=== PATIENT | female | born 2000 | race Caucasian/White ===

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

== ENCOUNTER 2019-01-01 21:31 | Outpatient (CLI) | payer MEDICAID ==
[2017-09-10 08:59] VITALS: BMI 18.4
[~2019-01-01 21:31] MED LIST: HYDROCODON-ACE1 EAC7 PO
[2019-01-01 22:56] LABS: APPEARANCE CLEAR (CLEAR); BILIRUBIN NEGATIVE (NEGATIVE); COLOR YELLOW (YELLOW); GLUCOSE NEGATIVE (NEGATIVE); KETONE NEGATIVE (NEGATIVE); NITRITE NEGATIVE (NEGATIVE); PROTEIN NEGATIVE (NEGATIVE); UROBILINOGEN NORMAL (NORMAL)
[2019-01-01 23:02] LABS: UDS - AMPHET NEGATIVE QUAL (NEGATIVE); UDS - BARB NEGATIVE QUAL (NEGATIVE); UDS - BENZO NEGATIVE QUAL (NEGATIVE); UDS - COCAINE NEGATIVE QUAL (NEGATIVE); UDS - OPIATE NEGATIVE QUAL (NEGATIVE); UDS - PCP NEGATIVE QUAL (NEGATIVE); UDS - THC NEGATIVE QUAL (NEGATIVE)
== END 2019-01-01 23:56 | disposition home or self-care (01) ==
LOC: D.LDO 21:31 → D.LD 22:53 → D.LDO 23:56
PROVIDERS: ATTEND Obstetrics & Gynecology
DX: O26.899 Other specified pregnancy related conditions, unspecified trimester (principal); Z3A.00 Weeks of gestation of pregnancy not specified; R10.9 Unspecified abdominal pain

== ENCOUNTER 2019-03-10 10:59 | Inpatient (IN) | payer MEDICAID ==
[~2019-03-10] VITALS: Ht 162.6 cm; Wt 64.0 kg
[2019-03-10] MEDS ORDERED: PRENAVITE1 TAB PO (11:42)
[2019-03-10 11:43] VITALS: BP 123/79; Ht 162.6 cm; Wt 64.0 kg
[2019-03-10] MEDS ORDERED: CETIRIZINE HCL5 MG PO (11:43)
[2019-03-10 12:43] LABS: HEMATOCRIT 31.6 % (36.0-48.0); HEMOGLOBIN 10.4 g/dL (12-16); MCH 27.6 pg (26.0-34.0); MCHC 32.9 g/dL (31.0-37.0); MCV 83.8 fL (80.0-100.0); MEAN PLATELET VOLUME 11.9 fL (7.4-10.4); RBC 3.77 10x6/uL (4.00-5.40); RDW 13.1 % (11.5-14.5); WBC 13.3 10x3/uL (4.8-10.8)
[2019-03-10 14:56] LABS: APPEARANCE CLEAR (CLEAR); BILIRUBIN NEGATIVE (NEGATIVE); COLOR STRAW (YELLOW); GLUCOSE NEGATIVE (NEGATIVE); KETONE NEGATIVE (NEGATIVE); NITRITE NEGATIVE (NEGATIVE); PROTEIN 1+ mg/dL (NEGATIVE); SPECIFIC GRAVITY 1.005 (1.005-1.020); UROBILINOGEN NORMAL (NORMAL)
[2019-03-10 14:59] LABS: UDS - AMPHET NEGATIVE QUAL (NEGATIVE); UDS - BARB NEGATIVE QUAL (NEGATIVE); UDS - BENZO NEGATIVE QUAL (NEGATIVE); UDS - COCAINE NEGATIVE QUAL (NEGATIVE); UDS - OPIATE NEGATIVE QUAL (NEGATIVE); UDS - PCP NEGATIVE QUAL (NEGATIVE); UDS - THC NEGATIVE QUAL (NEGATIVE)
[2019-03-10 15:00] LABS: RED CELLS - URINE RARE /hpf (0-5); WHITE CELLS - URINE OCC /hpf (0-5)
[2019-03-10 15:02] LABS: BACTERIA FEW /hpf (NONE SEEN)
--- NOTE | 2019-03-11 04:15 | NUR ---
DR PATTERSON AT NURSES STATION REVIEWING STRIP, NEW ORDERS NOTED TO HOLD PITOCIN AND GIVE CYTOTEC 50MCG PO Q4HRS
[2019-03-11 08:11] LABS: RAPID PLASMA REAGIN Non Reactive (Non Reactive)
--- NOTE | 2019-03-12 14:05 | NUR ---
THIS RN TO ROOM FOR PT CHECK. NOTED TO BE ASLEEP AT BREAST. PT C/O "GUSH OF BLOOD" FROM VAGINA. INFANT REMOVED FROM BREAST AND HANDED OFF TO FAMILY MEMBER. FF, LEFT DEVIATION, U/2. SMALL RUBRA LOCHIA NOTED TO PERIPAD, NO CLOTS EXPELLED WITH MASSAGE. PT STATES SHE FEELS STRONG URGE TO VOID AND WANTS TO GO NOW. PT HAS FULL ROM OF LE AND ABLE TO BEAR WEIGHT IN BED. PT POSITIONS SELF TO SITTING. EPIDURAL CATH REMOVED WITHOUT INCIDENT, BLACK TIP INTACT. NO BLEEDING, BRUISING, OR DRAINAGE NOTED TO SITE. BANDAID APPLIED. PT STANDS AT BEDSIDE, DENIES DIZZINESS, THEN AMBULATES TO WITH STEADY GAIT. PT VOIDS LARGE AMOUNT CLEAR YELLOW URINE, UNMEASURED. PT INSTRUCTED ON PERICARE WITH BETADINE RINSE, RETURN DEMONSTRATES PROCEDURE. PT PROVIDED WITH DERMAPLAST SPRAY FOR PERINEUM PER VERBAL ORDER AT DELIVERY FROM DR PARTIDA. PT USES SPRAY, PLACED IN CLEAN PANTIES WITH PADS, AND NEW GOWN. PT AMBULATES TO BEDSIDE AND SITS ON EDGE OF BED. WILL SET UP ROOM AND TRANSFER PT.
--- NOTE | 2019-03-12 14:30 | NUR ---
PT TRANSFERRED TO ROOM 1257 VIA W/C. ORIENTED TO NEW ROOM, BATHROOM, CALL LIGHT, AND TV CONTROLS. PT LUNCH TRAY TRANSFERRED TO NEW ROOM, AND PROVIDED WITH NEW ICE WATER. IV PITOCIN INFUSING ORDERED. PT DENIES NEEDS AT THIS TIME. SRUx2, CL IN REACH. SIG OTHER AT BEDSIDE. INFANT IN NURSERY AT THIS TIME.
[2019-03-12 15:30] VITALS: BP 142/92
--- NOTE | 2019-03-12 15:30 | NUR ---
GENTAMICIN INITIATED ORDERED, SEE EMAR FOR DOC. VS OBTAINED, SEE FLOWSHEET FOR DOC. FF, ML, U/2. SMALL RUBRA LOCHIA NOTED TO PERIPAD, NO CLOTS. PT STATES SHE NEEDS TO GET UP TO BR TO VOID.
--- NOTE | 2019-03-12 15:45 | NUR ---
PT UP TO BR TO VOID WITHOUT ASSIST, VOIDS LARGE AMOUNT CLEAR YELLOW URINE. PERICARE PER PT AND PAD CHANGED. PT BACK TO BED WITH STEADY GAIT, DENIES ANY NEEDS AT THIS TIME. PITOCIN INFUSION COMPLETE AND TURNED OFF. SRUx2, CL IN REACH. WILL CONT TO MONITOR.
--- NOTE | 2019-03-12 17:24 | NUR ---
GENTAMICIN COMPLETED AND LINE FLUSHED WITH PRIMARY LINE OF LR. CLEOCIN DOSE HUNG. PT RATES PAIN 5/10, STATES "IT'S NOT THAT BAD, I DON'T NEED ANYTHING FOR PAIN YET." PT INSTRUCTED ON NEXT TIME MOTRIN AVAILABLE IF NEEDED, UNDERSTANDING VERBALIZED. PT STATES SHE GOT UP TO BR ONCE AND LOCHIA WAS NOT HEAVY. PT REQUESTING TO GET UP TO SHOWER AFTER THIS DOSE ANTIBIOTIC, POC DISCUSSED WILL GET UP TO SHOWER AFTER MEDS. PT ASSISTED WITH POSITIONING INFANT TO BREASTFEED. PT DENIES FURTHER NEEDS. SRUx2, CL IN REACH. SIG OTHER AT BEDSIDE. WILL CONT TO MONITOR.
--- NOTE | 2019-03-12 18:48 | NUR ---
THIS RN TO ROOM FOR PT CHECK. POC DISCUSSED, PT DENIES NEEDING ANYTHING FOR PAIN AT THIS TIME. SRUx2, CL IN REACH.
[2019-03-12 19:17] VITALS: BP 153/110
--- NOTE | 2019-03-12 19:17 | NUR ---
BEDSIDE REPORT REC'D FROM Yue SANTOS RN. PT REC'D IN HIGH FOWLERS POSITION CONVERSING AND LAUGHING WITH VISITORS. AMP HUNG PER ORDERS TO INFUSE VIA PUMP OVER 1 HOUR. SHIFT ASSESSMENT COMPLETED PER FLOWSHEET. B/P INITIALLY 163/118, VISITORS ASK TO STEP OUT, RECHECK DONE FOLLOWING VISITORS OUT OF ROOM, 153/110. PAIN 4-5/10, PERINEAL SORENESS AND ABD CRAMPING, DENIES NEED FOR PAIN MEDS. DISCUSSED WITH PT THAT PAIN CAN OFTEN INCREASE B/P, VERBALIZES UNDERSTANDING. DENIES EPIGASTIC PAIN, VISION DISTURBANCE, NV. 2+ BLE AND BILATERAL LABIAL EDEMA NOTED WITH 1+ BUE EDEMA, NO FACIAL EDEMA NOTED. B/P READINGS REPORTED TO DR. PARTIDA WITH ORDERS REC'D TO ENCOURAGE PT TO TAKE AT LEAST MOTRIN AND RECHECK IN 30-60 MINUTES. POC DISCUSSED WITH PT AND S/O, BOTH VERBALIZE UNDERSTANDING AND DENY QUESTIONS. FUNDUS FIRM, MIDLINE AND U2 WITH SMALL AMT RUBRA LOCHIA, NO CLOTS NOTED. BED IN LOW POSITION WITH UPPER SIDE RAILS RAISED X2. CALL LIGHT AND PHONE WITHIN REACH.
--- NOTE | 2019-03-12 19:46 | NUR ---
DISCUSSED TAKING MOTRIN FOR PAIN, AND PLANS TO CONTINUE TO MONITOR B/P, PT AGREEABLE. PAIN /10. ICE WATER PROVIDED, DENIES ADDITIONAL NEEDS. INFANT IN ROOM IN OPEN CRIB. DR. CORNELL ALSO TO BEDSIDE DISCUSSING CARE WITH PT. BED IN LOW POSITION WITH UPPER SIDE RAILS RAISED X2.
[2019-03-12 20:27] VITALS: BP 139/95
--- NOTE | 2019-03-12 20:27 | NUR ---
PAIN NOW 08/08. B/P RECHECK 139/95. UP IN CHAIR ATTEMPTING TO BF INFANT. DENIES NEEDS. WILL CONTINUE TO MONITOR.
--- NOTE | 2019-03-12 21:36 | NUR ---
DR. PARTIDA CALLS UNIT. REPORT ON LAST B/P OF 139/95. NO NEW ORDERS, CONTINUE TO MONITOR.
--- NOTE | 2019-03-12 21:39 | NUR ---
INFANT IN VISITORS ARMS. B/P 136/88. PIV SL. REPORTS THAT SHE IS GOING TO ATTEMPT TO BF AND WOULD LIKE TO SHOWER FOLLOWING THAT. INSTRUCTED TO NOTIFY RN FOR PIV TO BE COVERED, VERBALIZES UNDERSTANDING.BED IN LOW POSITION WITH UPPER SIDE RAILS RAISED X2. CALL LIGHT AND PHONE WITHIN REACH. WILL CONTINUE TO MONITOR.
--- NOTE | 2019-03-12 22:32 | NUR ---
BF AT THIS TIME. ICE WATER PROVIDED. DENIES PAIN AND ADDITIONAL NEEDS. SIGNIFICANT OTHER AT BEDSIDE, SUPPORTIVE AND ATTENTIVE TO PT AND INFANT NEEDS. BED IN LOW POSITION WITH UPPER SIDE RAILS RAISED X2. CALL LIGHT AND PHONE WITHIN REACH. WILL CONTINUE TO MONITOR.
--- NOTE | 2019-03-12 23:37 | NUR ---
UP TO SHOWER. LT WRIST PIV WRAPPED. INSTRUCTED ON LETTING WARM WATER FLOW OVER BREAST FOR STIMULATION, VERBALIZES UNDERSTANDING. INSTRUCTED ON NOTIFING RN OF DIZZINESS AND CALL LIGHT USE IN BR, VERBALIZES UNDERSTANDING. TOWELS PROVIDED. PT STATES THAT SHE IS GOING TO PUT HER OWN CLOTHES ON. DENIES PAIN AND ADDITIONAL NEEDS AT THIS TIME. WILL CONTINUE TO MONITOR.
--- NOTE | 2019-03-13 00:08 | NUR ---
OUT OF SHOWER. DENIES NEEDS. REFUSES LINEN CHANGE. BED IN LOW POSITION WITH UPPER SIDE RAILS RAISED X2. INFANT RESTING IN OPEN CRIB AT BEDSIDE. CALL LIGHT AND PHONE WITHIN REACH. WILL CONTINUE TO MONITOR.
--- NOTE | 2019-03-13 00:46 | NUR ---
CLINDAMYCIN HUNG PER ORDER TO INFUSE OVER 1 HOUR VIA PUMP, INFUSING WITHOUT DIFFICULTY TO LT WRIST PIV, NO S/S OF INFECTION/INFILTRATION NOTED. DENIES PAIN AND NEEDS. APPLE JUICE PROVIDED. INFANT REMAINS IN ROOM IN FOB ARMS. PT REMAINS SITTING ON COUCH. CALL LIGHT AND PHONE PLACED WITHIN PT REACH. WILL CONTINUE TO MONITOR.
--- NOTE | 2019-03-13 01:08 | NUR ---
CALLS VIA CALL LIGHT STATING PIV IS LEAKING, RN TO BEDSIDE. LT WRIST PIV LEAKING. INFUSION PAUSED. 20 PIV STARTED TO RIGHT HAND TIMES 1 STICK, EXCELLENT BLOOD RETURN NOTED, TOLERATED WELL. TRANSPARENT DRSG PLACED, SECURED WITH TAPE. INFUSION RESTARTED. LT WRIST PIV REMOVED, TIP INTACT, BANDAID PLACED OVER SITE. LINENS CHANGED PER PT REQUEST. DENIES ADDITIONAL NEEDS. ICE WATER PROVIDED. DENIES PAIN. BED IN LOW POSITION WITH UPPER SIDE RAILS RAISED X2. CALL LIGHT AND PHONE WITHIN REACH. SIGNIFICANT REMAINS AT BEDSIDE SUPPORTIVE AND ATTENTIVE TO PT AND INFANT NEEDS. PLACED IN MOM'S ARMS PER REQUEST.
--- NOTE | 2019-03-13 01:50 | NUR ---
CLINDAMYCIN INFUSION COMPLETED, RT HAND PIV FLUSHED. 2 GM AMPICILLIN HUNG TO INFUSE VIA PUMP PER ORDER. PT IN HIGH FOWLERS IN BED ATTEMPTING TO BF . DENIES PAIN AND NEED FOR ASSISTANCE WITH BF. EXTRA PILLOW PROVIDED PER PT REQUEST. BED IN LOW POSITION WITH UPPER SIDE RAILS RAISED X2. CALL LIGHT AND PHONE WITHIN REACH. SIGNIFICANT OTHER REMAINS AT BEDSIDE, SUPPORTIVE AND ATTENTIVE TO PT AND INFANT NEEDS.
[2019-03-13 02:32] VITALS: BP 132/82
--- NOTE | 2019-03-13 02:32 | NUR ---
CALLS VIA CALL LIGHT C/O BLURRED VISION. RN TO BEDSIDE. VSS, B/P 132/82. ALSO C/O HEADACHE. REPORTS THAT SHE IS VERY TIRED AND THINKS SYMPTOMS MAYBE RELATED TO "LACK OF SLEEP." DENIES EPIGASTRIC PAIN, NV. NO CHANGE IN EDEMA FROM SHIFT ASSESSMENT. ALSO C/O PAIN PERINEAL SORENESS AND ABD CRAMPING 01/05, REQUEST PERCOCET AND MOTRIN. PT REQUESTS INFANT BE TAKEN TO NBN AND BREAST PUMP BE PROVIDED. DENIES ADDITIONAL NEEDS AT THIS TIME. BED IN LOW POSITION WITH UPPER SIDE RAILS RAISED X2. CALL LIGHT AND PHONE WITHIN REACH. WILL CONTINUE TO MONITOR. SIGNIFICANT OTHER RESTING ON COUCH AT BEDSIDE.
--- NOTE | 2019-03-13 02:43 | NUR ---
MOTRIN AND PERCOCET GIVEN FOR C/O PAIN 01/05 PER REQUEST. ICE WATER PROVIDED. BREAST PUMP PROVIDED AND PT INSTRUCTED ON USE WITH RETURN DEMONSTRATION OF USE. TO NBN PER PT REQUEST. INSTRUCTED ON PERCOCET AND FALL PRECAUTIONS, VERBALIZES UNDERSTANDING AND DENIES QUESTIONS. BED IN LOW POSITION WITH UPPER SIDE RAILS RAISED X2. CALL LIGHT AND PHONE WITHIN REACH. WILL CONTINUE TO MONITOR.
--- NOTE | 2019-03-13 03:24 | NUR ---
DENIES PAIN. AMP INFUSION COMPLETED. RT HAND PIV SL, NO S/S OF INFILTRATION NOTED. IN NBN, DENIES NEEDS. ICE WATER PROVIDED. BED IN LOW POSITION WITHUPPER SIDE RAILS RAISED X2. CALL LIGHT AND PHONE WITHIN REACH. EBM LABELED AND TAKEN TO N. WILL CONTINUE TO MONITOR.
--- NOTE | 2019-03-13 05:10 | NUR ---
LAYING ON R SIDE RESTING WITH EYES CLOSED. RESP REGULAR AND UNLABORED, NO S/S OF DISTRESS NOTED. SIGNIFICANT OTHER RESTING ON COUCH AT BEDSIDE. REMAINS IN NBN. BED IN LOW POSITION WITH UPPER SIDE RAILS RAISED X2. CALL LIGHT AND PHONE WITHIN REACH. WILL CONTINUE TO MONITOR.
[2019-03-13 06:24] LABS: HEMOGLOBIN 8.9 g/dL (12-16); MCH 27.5 pg (26.0-34.0); MCV 83.3 fL (80.0-100.0); MEAN PLATELET VOLUME 11.6 fL (7.4-10.4); PLATELET COUNT 148 10x3/uL (130-400); RBC 3.24 10x6/uL (4.00-5.40); RDW 13.4 % (11.5-14.5); WBC 33.5 10x3/uL (4.8-10.8)
[2019-03-13 07:07] LABS: LYMPHOCYTES 7 % (15-50); MONOCYTES 2 % (2-11); NEUTROPHILS 90 % (40-80); PLATELET ESTIMATE NORMAL
--- NOTE | 2019-03-13 08:07 | NUR ---
ASSUMED CARE LAYING ON LEFT SIDE SLEEPING, AROUSED EASILY FOR ANTIBIOTIC THERAPY IV SITE IN RIGHT HAND PATENT. WILL COMPLETE SHIFT ASSESSMENT WHEN AWAKE. IN NURSERY, VISITOR IN ROOM, SIDERAILS UP X 2, CALL LIGHT IN REACH.
--- NOTE | 2019-03-13 08:50 | NUR ---
SITTING UP IN BED . DENIES NEEDING ANYTHING. FOB IN ROOM. ANTIBIOTIC NEARLY COMPLETED. SIDE RAILS UP X 2, CALL LIGHT IN REACH. WILL COMPLETE SHIFT ASSESSMENT WHEN FINISHED . NO REQUEST.
[2019-03-13 09:15] VITALS: BP 134/86
--- NOTE | 2019-03-13 09:15 | NUR ---
SHIFT ASSESSMENT COMPLETED. DENIES ESPINAL OR VISUAL CHANGED AT THIS TIME. DENIES NEEDING ANYTHING FOR PAIN. TO CALL IF ANYTHING IS NEEDED. PLANS TO GET UP AND VOID NOW. SIDERAILS UP X 2, CALL LIGHT IN REACH.
--- NOTE | 2019-03-13 09:42 | NUR ---
CRITICAL LAB CALLED FROM [facility] FRANCIS REPORTING GRAM POSITIVE COCCI GROWTH IN BLOOD.
--- NOTE | 2019-03-13 09:45 | NUR ---
REPORT OF POSITIVE BC GIVEN TO NBN NURSE AND AREN RN PRIMARY NURSE. WILL REPORT TO MD UPON ARRIVAL TO UNIT.
--- NOTE | 2019-03-13 10:00 | NUR ---
DR PARTIDA ON UNIT, REPORT GIVEN OF POSITIVE BC RESULTS. WILL CONTINUE POC FOR NOW PER .
--- NOTE | 2019-03-13 10:53 | NUR ---
SITTING UP IN BED HOLDING . DENIES NEEDING ANYTHING. ANTIBIOTICS COMPLETED IV FLUIDS DC'D FROM SALINE LOCK. SIDERAILS UP X 2, DENIES NEEDING ANYTHING FOR PAIN. FOB IN ROOM.
--- NOTE | 2019-03-13 12:37 | NUR ---
SITTING UP IN BED EATING LUNCH. DENIES NEEDING ANYTHING. FOB AND IN ROOM. SIDE RAILS UP X 2, CALL LIGHT IN REACH.
[2019-03-13 13:56] VITALS: BP 143/96
--- NOTE | 2019-03-13 14:02 | NUR ---
SITTING UP IN BED TALKING TO VISITORS. DENIES PAIN. BP OBTAINED WITH SMALL BP CUFF. ANTIBIOTIC INFUSING WITHOUT SIGNS OF INFILTRATION. DENIES ESPINAL OR VISUAL CHANGES. NO REQUESTS. SIDE RAILS UP X 2, CALL LIGHT IN REACH. TO CALL IF ANYTHING IS NEEDED.
[2019-03-13 15:10] VITALS: BP 139/98
--- NOTE | 2019-03-13 15:25 | NUR ---
SITTING UP IN BED HOLDING . VS OBTAINED. 2/10 PERINEAL SORENESS AND ACHING WHICH INCREASES TO A 6/10 WHEN OOB. RETURNED TO BED AFTER VOIDING PRIOR TO VS ASSESSMENT. OFFERED PAIN MEDICATION, OPTED ON MOTRIN. MOTRIN 600 MG GIVEN PO FOR RELIEF. HAS BEEN USING DERMOPLAST SPRAY PRN. DENIES NEEDING ANYTHING ELSE AT THIS TIME. NO CURRENT VISITORS. SIDE RAILS UP X 2. CALL LIGHT IN REACH. TO CALL IF ANYTHING IS NEEDED.
--- NOTE | 2019-03-13 16:22 | NUR ---
INFANT IS BEING TRANSFERRED TO [facility]. CARTON STENCILER CURRENTLY AT BEDSIDE TALKING WITH PT AND FAMILY. DR PARTIDA NOTIFIED, PT UNABLE TO BE DC'D DUE TO ANTIBIOTIC THERAPY. DR PARTIDA ALSO NOTIFIED OF CURRENT BPS TODAY. ASKED MD ABOUT GENTAMYCIN 2 DOSES THAT WERE ORDERED. NEW ORDERS RECEIVED TO CONTINUE GENTAMYCIN. PATIENT NOTIFIED THAT SHE WILL NOT BE ABLE TO BE DC'D TODAY. EXPECTED DATE OF DISCHARGE IS UNKNOWN. ANTIBIOTIC COMPLETE. SALINE LOCK INPLACE, NO SIGNS OF INFILTRATION. WILL ALLOW TIME WITH PRIOR TO TRANSFER.
--- NOTE | 2019-03-13 16:43 | NUR ---
HAD ADDITIONAL QUESTIONS REGARDING TRANSFER OF INFANT. PUMP MACHINE OPERATOR TO ROOM TO ANSWER PATIENT QUESTIONS.
--- NOTE | 2019-03-13 19:18 | NUR ---
BEDSIDE REPORT REC'D FROM AREN RN. PT REC'D SITTING IN HIGH FOWLERS POSITION CONVERSING WITH VISITORS AND TEXTING. DENIES NEEDS. POC DISCUSSED WITH PT, DENIES QUESTIONS. BED IN LOS POSITION WITH UPPER SIDE RAILS RAISED X2. CALL LIGHT AND PHONE WITHIN REACH. WILL CONTINUE TO MONITOR.
[2019-03-13 19:56] VITALS: BP 132/88
--- NOTE | 2019-03-13 19:56 | NUR ---
VSS. 2 GM AMPICILLIN HUNG TO INFUSE OVER 1 HOUR VIA PUMP PER ORDER. RT HAND PIV INFUSING WITHOUT DIFFICULTY, NO LEAKING OR S/S OF INFILTRATION NOTED. SHIFT ASSESSMENT COMPLETED PER FLOWSHEET. FUNUDS FIRM, MIDLINE AND U2 WITH SCANT RUBRA LOCHIA, NO CLOTS NOTED. IMPROVEMENT IN BLE AND BUE EDEMA NOTED FROM PREVIOUS SHIFT THAT THIS RN CARED FOR PT AND PT REPORTS THAT SHE "FEELS A LOT LESS SWOLLEN." 1+ BILATERAL LABIAL EDEMA NOTED. REPORTS THAT SHE IS VOIDING AND PASSING FLATUS WITHOUT DIFFICULTY. DENIES PAIN AND NEEDS AT THIS TIME. BED IN LOW POSITION WITH UPPER SIDE RAILS RAISED X2. CALL LIGHT AND PHONE WITHIN REACH.
--- NOTE | 2019-03-13 20:30 | NUR ---
CALLS VIA CALL LIGHT, REPORTS THAT TOILET WILL NOT FLUSH AND OR FILL UP. RN TO BEDSIDE. SPOKE WITH DEANNA RN IN ER REGARDING PAGING ENGINEERING. ENGINEERING PAGED WITH IMMEDIATE CALLBACK TO UNIT. REPORTS THAT HE WILL COME TO UNIT TO FIX. PT NOTIFIED AND VERBALIZES UNDERSTANDING AND APPRECIATION.
--- NOTE | 2019-03-13 20:58 | NUR ---
AMPICILLIN INFUSION COMPLETED. RT HAND PIV SL AND FLUSHED, NO S/S OF INFILTRATION NOTED. ENGIRNEERING TO ROOM TO FIX TOILET. ICE WATER PROVIDED. DENIES ADDITIONAL AND PAIN. BED IN LOW POSITION WITH UPPER SIDE RAILS RAISED X2. CALL LIGHT AND PHONE WITHIN REACH.
--- NOTE | 2019-03-13 21:43 | NUR ---
UP TO SHOWER. RT HAND PIV COVERED. LINEN CHANGE DONE. DENIES ADDITIONAL NEEDS AND VERBALIZES UNDERSTANDING OF CL USE IN BR. BED IN LOW POSITION WITH UPPER SIDE RAILS RAISED X2. CALL LIGHT AND PHONE WITHIN REACH. WILL CONTINUE TO MONITOR.
--- NOTE | 2019-03-13 23:15 | NUR ---
C/O PERINEAL SORENESS AND ABD CRAMPING 12/06, REQUEST PERCOCET AND MOTRIN PER REQUEST. EBM LABELED AND STORED PER PT REQUEST. ICE WATER PROVIDED. DENIES ADDITIONAL NEEDS. FAMILY MEMBER RESTING ON COUCH AT BEDSIDE. BED IN LOW POSITION WITH UPPER SIDE RAILS RAISED X2. CALL LIGHT AND PHONE WITHIN REACH. WILL CONTINUE TO MONITOR.
[2019-03-14] VITALS (9 sets, daily range): BP systolic 127–154; BP diastolic 82–111
--- NOTE | 2019-03-14 | NUR ---
PAIN REASSESSMENT COMPLETED. RESTING QUIETLY IN SEMI FOWLERS POSITION WITH EYES CLOSED. RESP REGULAR AND UNLABORED, NO S/S OF DISTRESS NOTED. BED IN LOW POSITION WITH UPPER SIDE RAILS RAISED X2. CALL LIGHT AND PHONE WITHIN REACH.
--- NOTE | 2019-03-14 01:30 | NUR ---
CLEOCIN HUNG PER ORDER TO RT HAND PIV, INFUSING WITHOUT DIFFICULTY, NO S/S OF INFILTRATION NOTED. DENIES PAIN. VSS. FUNDUS REMAINS FIRM, MIDLINE AND U2 WITH SCANT RUBRA LOCHIA, NO CLOTS NOTED. ICE WATER PROVIDED, DENIES ADDITIONAL NEEDS. BED IN LOW POSITION WITH UPPER SIDE RAILS RAISED X2. CALL LIGHT AND PHONE WITHIN REACH. WILL CONTINUE TO MONITOR.
--- NOTE | 2019-03-14 02:40 | NUR ---
RT PIV FLUSHED. 2 GM AMP HUNG TO INFUSE OVER 1 HOUR PER ORDER VIA PUMP. DENIES NEEDS AND PAIN. BED IN LOW POSITION WITH UPPER SIDE RAILS RAISED X2. CALL LIGHT AND PHONE WITHIN REACH. WILL CONTINUE TO MONITOR.
--- NOTE | 2019-03-14 05:42 | NUR ---
ROUNDS MADE. PT LAYING ON LT SIDE RESTING WITH EYES CLOSED. RESP REGULAR AND UNLABORED, NO S/S OF DISTRESS NOTED. BED IN LOW POSITION WITH UPPER SIDE RAILS RAISED X2. CALL LIGHT AND PHONE WITHIN REACH. WILL CONTINUE TO MONITOR
--- NOTE | 2019-03-14 07:30 | NUR ---
THIS RN TO ROOM FOR SHIFT ASSESSMENT. PT RESTING IN BED ON LEFT SIDE, EYES CLOSED, RESP EVEN AND UNLABORED. PT LEFT UNDISTURBED FOR REST. PT FAMILY MEMBER ON BEDSIDE COUCH. SRUx2, CL IN REACH. WILL CONT TO MONITOR.
[2019-03-14 07:52] LABS: BASOPHILS 0.2 % (0-2); EOSINOPHILS 1.2 % (0-7); HEMOGLOBIN 9.9 g/dL (12-16); IMMATURE GRANULOCYTES 1.4 % (0-5); LYMPHOCYTES 13.1 % (15-50); MCH 27.7 pg (26.0-34.0); MCV 83.8 fL (80.0-100.0); MEAN PLATELET VOLUME 10.7 fL (7.4-10.4); MONOCYTES 5.4 % (2-11); NEUTROPHILS 78.7 % (40-80); RBC 3.58 10x6/uL (4.00-5.40); RDW 13.6 % (11.5-14.5)
[2019-03-14 07:57] LABS: PLATELET COUNT 178 10x3/uL (130-400); WBC 16.6 10x3/uL (4.8-10.8)
--- NOTE | 2019-03-14 08:43 | NUR ---
THIS RN PHONES MADIE IN MICRO IN LAB TO QUESTION WHEN SENSITIVIY WILL BE RESULTED FROM [facility] CULTURES. MADIE STATES IT WILL NOT BE RESULTED UNTIL TOMORROW. DR PARTIDA ON UNIT, UPDATE GIVEN. ORDERS THIS RN TO UPDATE PT THAT SHE WILL NOT BE ABLE TO DISCHARGE UNTIL THAT IS RESULTED TOMORROW.
--- NOTE | 2019-03-14 08:50 | NUR ---
THIS RN TO ROOM FOR ANTIBIOTIC ADMIN AND SHIFT ASSESSMENT, SEE EMAR AND FLOWSHEET FOR DOC. BP NOTED TO BE ELEVATED, SEE EMAR FOR DOC. PT ALSO C/O SOME MIDLINE CHEST DISCOMFORT, STATES IT FEELS LIKE HEARTBURN. WILL NOTIFY MD. PT DENIES ESPINAL, BLURRED VISION, NAUSEA, HEAVY LOCHIA OR CLOTS, DIZZINESS UPON STANDING, OR ANY OTHER S/S. PT REPORTS PAIN SCALE OF 2/10 AT THIS TIME, DENIES NEED FOR INTERVENTION. MILD GENERALIZED EDEMA NOTED TO LE BILAT, 1+, NON-PITTING. PEDAL PULSES 2+ BILAT. FF, ML, U/2. SMALL RUBRA LOCHIA. LABIAL SWELLING IMPROVED. PT DENIES NEED FOR SUPPLIES, REGULAR BREAKFAST TRAY SET UP ON BEDSIDE TABLE. WILL NOTIFY MD OF ASSESSMENT AND RETURN TO UPDATE PT ON POC.
--- NOTE | 2019-03-14 09:20 | NUR ---
DR ZAMORA PHONED AND REPORT GIVEN ON PT'S BP'S OF 152/111 AND 152/107, AND THAT SHE IS C/O SOME MIDLINE CHEST DISCOMFORT, BUT STATES "IT JUST FEELS LIKE HEARTBURN." ORDER RCVD TO ADMIN PT PRN PAIN MEDICATION TO R/O IF BP IS PAIN RELATED, AND TO ADMIN MAALOX FOR HEARTBURN. ORDER RCVD TO RECHECK BP AT 30MIN.
--- NOTE | 2019-03-14 10:00 | NUR ---
MEDS ADMIN ORDERED, WELL SCHEDULED ANTIBIOTIC, SEE EMAR FOR DOC. BP TAKEN AND NOTED TO BE ELEVATED, SEE FLOWSHEET FOR DOC. WILL RECHECK IN 1 HOUR, ALLOWING TIME FOR MOTRIN TO TAKE EFFECT. PT PROVIDED WITH FRESH ICE WATER, DENIES NEEDS AT THIS TIME. SRUx2, CL IN REACH. FAMILY AT BEDSIDE.
--- NOTE | 2019-03-14 11:15 | NUR ---
THIS RN TO ROOM FOR CONSULTANT ELECTRONICS AND BP RECHECK. BP NOTED TO BE ELEVATED 139/105, WILL NOTIFY MD. PT REQUESTING TO GET UP TO SHOWER. PT DENIES ANY ESPINAL, BLURRED VISION, DIZZINESS. STATE SHE "FEELS FINE, JUST A LITTLE CRAMPY". PT IV SALINE LOCKED AND COVERED FOR SHOWER. SHOWER SUPPLIES AND LINENS PROVIDED TO PT. FAMILY MEMBER IN ROOM WITH PT FOR ASSIST IF NEEDED. SRUx2, CL IN REACH. WILL CONT TO MONITOR.
--- NOTE | 2019-03-14 11:42 | NUR ---
DR PATRIDA PHONED WITH REPORT ON BP, ORDER RCVD TO START PT ON 100MG LABETALOL PO Q8H. WILL ADMIN FIRST DOSE SOON AVAILABLE FROM PHARMACY.
--- NOTE | 2019-03-14 11:50 | NUR ---
THIS RN TO ROOM FOR TO ADMIN ORDERED LABETALOL. PT IN SHOWER. PT DENIES NEED FOR ASSIST, REQUESTS STOOL SOFTENER. PT INSTRUCTED TO CALL WHEN BACK TO BED FOR CARE ASST. UNDERSTANDING VERBALIZED. FAMILY IN ROOM WITH PT.
--- NOTE | 2019-03-14 12:25 | NUR ---
THIS RN TO ROOM, PT NOTED TO BE BACK IN BED. PT ADMIN LABETALOL ORDERED, WELL COLACE ORDERED PRN PER PT REQUEST. SEE EMAR FOR DOC. PT REQUESTS BED LINENS BE CHANGED. BED LINENS CHANGED. PT DENIES FURTHER NEEDS. SRUx2, CL IN REACH. PT VISITING WITH FAMILY. WILL REASSESS BP.
--- NOTE | 2019-03-14 14:10 | NUR ---
THIS RN TO ROOM FOR PT CHECK. PT SITTING UP IN BED, VISITING WITH FAMILY MEMBER. PT DENIES FEELING DIZZY OR ANY NEEDS. SRUx2, CL IN REACH.
--- NOTE | 2019-03-14 15:18 | NUR ---
DR PARTIDA PHONED AND REPORT GIVEN ON BP AFTER LABETALOL. ORDER RCVD TO ADMIN ANOTHER 100MG LABETALOL PO NOW, AND TO ADMIN 200MG LABETALOL PO AT TIME OF NEXT SCHEDULED DOSE.
--- NOTE | 2019-03-14 15:33 | NUR ---
PT ADMIN 100MG LABETALOL PO ORDERED, SEE EMAR FOR DOC. WILL REEVALUATE BP. PT DENIES PAIN OR NEEDS AT THIS TIME. VISITING WITH FAMILY. SRUx2, CL IN REACH.
--- NOTE | 2019-03-14 17:01 | NUR ---
THIS RN TO ROOM FOR BP RECHECK AND HAND SCHEDULED ANTIBIOTIC. PT SITTING UP IN BED, DRESSING . PT SMILING, PLEANSANT, DENIES PAIN, ESPINAL, OR ANY NEEDS. BP TAKEN x2 AND NOTED TO BE ELEVATED, SEE EMAR FOR DOC. WILL NOTIFY .
--- NOTE | 2019-03-14 17:10 | NUR ---
DR PARTIDA PHONED WITH REPORT ON PT'S BP'S. ORDER RCVD TO RECHECK IN 30MIN, AND IF STILL ELEVATED SHE MAY ADJUST BP MED. ORDER ALSO RCVD TO OBTAIN CATH UA FOR URINE PROTEIN, AND DRAW SERUM PIH LABS. WILL PROCEED ORDERED.
--- NOTE | 2019-03-14 17:25 | NUR ---
PT INSTRUCTED ON ORDERS AND POC. CATH UA OBTAINED. WILL RETAKE BP AT 30MIN MOIZ.
--- NOTE | 2019-03-14 17:45 | NUR ---
DR PARTIDA PHONED WITH REPORT ON PT'S BP OF 154/104, AND LABS NOT YET RESULTED. ORDER RCVD TO ADMIN 10MG PROCARDIA PO x1 NOW, AND NOTIFY HER WHEN LABS ARE RESULTED.
--- NOTE | 2019-03-14 17:55 | NUR ---
PT ADMIN 10MG PROCARDIA PO ORDERED, SEE EMAR FOR DOC. POC DISCUSSED WITH PT. WILL RECHECK BP IN 1 HOUR TO ALLOW TIME FOR PROCARDIA TO TAKE EFFECT.
--- NOTE | 2019-03-14 18:28 | NUR ---
THIS RN TO ROOM TO HANG NEXT ANTIBIOTIC. PT C/O MILD ESPINAL "BEHIND EYES", BUT STATES "THIS IS NOTHING NEW FOR ME THOUGH, I HAVE THESE ALL THE TIME." PT ALSO C/O FEELING "SHAKY". WILL CHECK DTR'S.
[2019-03-14 18:34] LABS: APPEARANCE CLEAR (CLEAR); BILIRUBIN NEGATIVE (NEGATIVE); COLOR YELLOW (YELLOW); GLUCOSE NEGATIVE (NEGATIVE); KETONE NEGATIVE (NEGATIVE); NITRITE NEGATIVE (NEGATIVE); PROTEIN NEGATIVE (NEGATIVE); UROBILINOGEN NORMAL (NORMAL)
--- NOTE | 2019-03-14 18:40 | NUR ---
THIS RN TO ROOM FOR CHECK DTR'S. DTR'S BRISK TO BOTH LE BILAT. NO CLONUS. PT STATES "YEAH, MY LEGS EVEN FEEL SHAKY." WILL NOTIFY DR PARTIDA WITH LABS.
[2019-03-14 18:41] LABS: HEMATOCRIT 29.1 % (36.0-48.0); HEMOGLOBIN 9.6 g/dL (12-16); MCH 27.6 pg (26.0-34.0); MCV 83.6 fL (80.0-100.0); PLATELET COUNT 205 10x3/uL (130-400); RBC 3.48 10x6/uL (4.00-5.40); RDW 13.7 % (11.5-14.5); WBC 19.3 10x3/uL (4.8-10.8)
--- NOTE | 2019-03-14 19:00 | NUR ---
REPORT TO PM SHIFT, AND TO RECHECK BP, CALL DR PARTIDA WITH LABS, AND NOTIFY MD OF BRISK REFLEXES.
[2019-03-14 19:05] LABS: ALBUMIN 2.3 g/dL (3.4-5.0); ALKALINE PHOSPHATASE 135 U/L (46-116); ALT (SGPT) 30 U/L (10-68); BILIRUBIN - DIRECT 0.08 mg/dL (0.00-0.30); BILIRUBIN - INDIRECT 0.14 mg/dL (0.00-1.00); BILIRUBIN - TOTAL 0.22 mg/dL (0.2-1.3); CALC OSMOLALITY 283 mosm/kg (275-300); CALCIUM 8.2 mg/dL (8.5-10.1); CARBON DIOXIDE 27.4 mmol/L (21.0-32.0); CHLORIDE - SERUM 107 mmol/L (98-107); CREATININE - SERUM 0.6 mg/dL (0.6-1.3); GLUCOSE 91 mg/dL (74-106); POTASSIUM - SERUM 4.1 mmol/L (3.5-5.1); PROTEIN - SERUM 5.7 g/dL (6.4-8.2); SODIUM 143 mmol/L (136-145); UREA NITROGEN 9 mg/dL (7-18); URIC ACID 4.1 mg/dL (2.6-7.2); eGFR NON AFRICAN AMERICAN > 90 mL/min (90-120)
--- NOTE | 2019-03-14 19:10 | NUR ---
PT REC'D IN BED AT THIS TIME. MULTIPLE FAMILY MEMBERS AT THE BEDSIDE. IVPB OF CLINDYMICIN INFUSING AT THIS TIME TO THE RT HAND. SITE CLEAR AND PATENT AT THIS TIME. LUNGS CLEAR. BS+. NO NAUSEA/VOMITING OR EPIGASTRIC PAIN NOTED. FUNDUS FIRM AND MIDLINE WITH SCANT LOCHIA NOTED. PT WITH HEADACHE THAT SHE STATES IS AROUND HER EYES. DENIES ANY VISUAL DISTURBANCES. VITAL SIGNS STABLE AT THIS TIME. DTR +2. NO ACUTE DISTRESS NOTED. SIDERAILS UP FOR SAFETY. CALL LIGHT IN PT REACH.
[2019-03-14 19:35] LABS: EOSINOPHILS 1 % (0-7); LYMPHOCYTES 12 % (15-50); MONOCYTES 3 % (2-11); NEUTROPHILS 84 % (40-80); PLATELET ESTIMATE NORMAL
--- NOTE | 2019-03-14 19:50 | NUR ---
PT MEDICATED WITH MOTRIN AT THIS TIME FOR HEADACHE. Andrew SCHNEIDER RN
--- NOTE | 2019-03-14 19:55 | NUR ---
AMPICILLIN 2GM UP VIA IVPB. Andrew SCHNEIDER RN
--- NOTE | 2019-03-14 21:20 | NUR ---
PT SITTING IN BED AT THIS TIME. STATES HEADACHE IS BETTER, DENIES NEEDS AT THIS TIME. CALL LIGHT IN PT REACH. Andrew SCHNEIDER RN
--- NOTE | 2019-03-14 22:50 | NUR ---
PT REC'D ON COUCH HOLDING , NO DISTRESS NOTED AT THIS TIME. S/O AT SIDE AND SUPPORTIVE. Andrew SCHNEIDER RN
[2019-03-15] VITALS (8 sets, daily range): BP systolic 133–1438; BP diastolic 84–104
--- NOTE | 2019-03-15 00:50 | NUR ---
pt rec'd in bed holding infant. blood pressure elevated at this time. pt states that she had not been to sleep. pt instructed that she needed to get some rest while the slept. understanding verbaized, pt also states that she is hurting in her back and perineum. narcotic pain medication offered but refused, pt states that she will wait for mita haq rn
--- NOTE | 2019-03-15 01:55 | NUR ---
pt medicated with motrin and propcardia at this time, will monitor. mita anthony rn
--- NOTE | 2019-03-15 03:45 | NUR ---
pt asleep at this time. did not awaken . resps even and unlabored. mita anthony rn
--- NOTE | 2019-03-15 06:03 | NUR ---
pt rec'd in bed this am changing infant's diaper. denies any pain this morning. bp this am 143/98.
--- NOTE | 2019-03-15 07:45 | NUR ---
PT AWAKE- SITTING UP IN BED- AT BREAST. VS DONE. DENIES PAIN. STATES THAT SMALL BLEEDING. NO REQUESTS.
--- NOTE | 2019-03-15 08:20 | NUR ---
DR PARTIDA HERE TO SEE PT.
--- NOTE | 2019-03-15 08:57 | NUR ---
dr almanza calls unit and states that she has d/c iv antibiotics and start po bactrim po.
--- NOTE | 2019-03-15 10:55 | NUR ---
sitting up in bed talking with family. states that she does have some back pain- rates pain a 3 on scale of 0-10. bp rechecked. 158/97.
--- NOTE | 2019-03-15 10:59 | NUR ---
report of bp to dr almanza. orders orders to cont to monitor for now.
--- NOTE | 2019-03-15 11:17 | NUR ---
BACTRIM AND FLORAJEN GIVEN PO WITH NPC RN STUDENT.
--- NOTE | 2019-03-15 12:52 | NUR ---
report of vs to dr almanza- new orders received.
--- NOTE | 2019-03-15 13:15 | NUR ---
infant going to first pedi appointment with sign other and family. pt anxious. requesting when can be discharged. explained that will again recheck bp post medication. pt ask when md will make rounds again.
--- NOTE | 2019-03-15 14:20 | NUR ---
entered room- baby is back with father. states that pedi appointment went well. pt states that iv is sore and requesting it be taken out. no redness or swelling around site. saline lock removed without incident- tip intact.
--- NOTE | 2019-03-15 14:52 | NUR ---
report of bp to dr almanza- instructed to inform pt that wants to monitor bp and will reevaluate tonight.
--- NOTE | 2019-03-15 15:10 | NUR ---
phoned dr almanza to report pt request to be discharged. dr almanza states that she cannot safely discharge pt at this time. states that she will see pt when able to leave office. pt informed of this. pt and her sign other cont to want to leave.
--- NOTE | 2019-03-15 15:10 | NUR ---
pt rings call light- states that pedi has called and that baby needs to be taken to due to bilirubin being elevated. pt is requesting to be transfered to . informed that will call dr almanza.
--- NOTE | 2019-03-15 15:25 | NUR ---
rings call light. pt states that she has tried to call dr almanza at office but got voice mail. pt asking this nurse to call dr almanza to see if she will give her scripts for bp medication and antibiotic and pt wants to go to [facility] with infant and will leave and sign an ama form. phoned dr almanza about this. dr almanza states that she will escribe meds to pharmacy on record. but again states that she cannot safely discharge pt at this time. pt informed of this. sign other gathering belongings up in room.
--- NOTE | 2019-03-15 15:40 | NUR ---
pt signs ama form. states understands forms. awhonn emergancy form given along with pfw discharge inst given. pih information given. pt states understanding.
--- NOTE | 2019-03-15 15:45 | NUR ---
b/p 133/[address] almanza to unit to see pt. verbal instructions given to pt per dr almanza. dr almanza informs pt that she will e-scribe meds to pharmacy on record- discuss procardia xl 30mg and bactrim. pt states understanding.
--- NOTE | 2019-03-15 16:00 | NUR ---
see signed pt signature page for other instructions given. pt states understanding.
--- NOTE | 2019-03-15 16:15 | NUR ---
entered room- pt has left room with infant and sign other.
--- NOTE | 2019-03-15 16:47 | NUR ---
TORADOL 30 MG GIVEN SIVP OVER 2 MINUTES. PT INSTRUCTED ON MED. VERBALIZES UNDERSTANDING. ICE PACK TO INCISION. PT INSTRUCTED ON TCDB AND USE OF INCENTIVE SPIROMETER. PT PULLS 1800 ON IS.
--- NOTE | 2019-03-15 18:10 | NUR ---
FUNDUS FIRM AT U/1. RUBRA LOCHIA MOD AMT. HALF DOLLAR SIZED CLOT AND QUARTER SIZED CLOT NOTED ON FUNDAL MASSAGE. PERICARE DONE. CHUX, TOWEL AND PERIPAD CHANGED. PT STATE LEGS CONTINUE NUMB. GOWN CHANGED. ADOMINAL DRESSING WITH SMALL AMT OF DRAINAGE NOTED.
== END 2019-03-15 16:15 | disposition left against medical advice (07) | DRG 805 ==
LOC: D.LD 10:59
PROVIDERS: Student in an Organized Health Care Education/Training Program; ADMIT Obstetrics & Gynecology; ATTEND Obstetrics & Gynecology
PROC: 3E033VJ Introduction of Other Hormone into Peripheral Vein, Percutaneous Approach (ICD-10-PCS; 2019-03-10)
PROC: 10E0XZZ Delivery of Products of Conception, External Approach (ICD-10-PCS; principal; 2019-03-12)
PROC: 10907ZC Drainage of Amniotic Fluid, Therapeutic from Products of Conception, Via Natural or Artificial Opening (ICD-10-PCS; 2019-03-12)
PROC: 0UQMXZZ Repair Vulva, External Approach (ICD-10-PCS; 2019-03-12)
DX: O99.824 Streptococcus B carrier state complicating childbirth (principal); O41.1230 Chorioamnionitis, third trimester, not applicable or unspecified; Z37.0 Single live birth; R78.81 Bacteremia; Z3A.38 38 weeks gestation of pregnancy; O14.04 Mild to moderate pre-eclampsia, complicating childbirth; O70.0 First degree perineal laceration during delivery; O75.9 Complication of labor and delivery, unspecified; B95.7 Other staphylococcus as the cause of diseases classified elsewhere; O90.89 Other complications of the puerperium, not elsewhere classified; R51 Headache

== ENCOUNTER → 2019-03-30 14:32 | Outpatient (CLI) | payer MEDICAID ==
[2019-03-10 11:43] VITALS: BMI 24.2
[~2019-03-30 14:32] MED LIST changes: +CETIRIZINE HCL5 MG PO; +PRENAVITE1 TAB PO
== END | disposition home or self-care (01) ==
LOC: D.LAB 14:32
PROVIDERS: ATTEND Student in an Organized Health Care Education/Training Program
DX: A41.89 Other specified sepsis (principal)